=== PATIENT | female | born 1945 | race Caucasian/White ===

== ENCOUNTER 2018-08-06 07:18 | Inpatient (IN) | payer OTHER ==
[2018-08-06] MEDS: LACTATED RINGER'S 1,000 ML IV* (07:00)
[2018-08-06] MEDS: CEFAZOLIN 1 GM/50 ML (PMX) 50 ML IVPB ×3 (07:00→21:22)
[2018-08-06] MEDS: ACETAMINOPHEN 500 MG TAB PO (07:00)
[~2018-08-06 07:18] MED LIST: CEFAZOLIN 1 GM INJ; EPINEPHrine 0.1 MG/ML SYG; HIP PAIN COCKTAIL (CEFUROXIME) INJ; METOCLOPRAMIDE 10 MG INJ; ROPIVACAINE 0.5 % 30 ML VIAL; hydrALAzine 20 MG INJ
[2018-08-06] MEDS: ONDANSETRON 4 MG INJ IV ×3 (08:09→18:45)
[2018-08-06] MEDS: DEXAMETHASONE 4 MG/ML 1 ML INJ IV (08:10)
[2018-08-06] MEDS: LANSOPRAZOLE 30 MG CAP PO (08:10)
[2018-08-06] MEDS: oxyCODONE (CR) 10 MG TAB [oxyCONTIN] PO (08:10)
[2018-08-06] MEDS ORDERED: FENTAnyl 50 MCG/ML VIAL (08:15)
[2018-08-06] MEDS ORDERED: MIDAZOLAM 1 MG/ML 2 ML INJ (08:17)
[2018-08-06] MEDS ORDERED: ONDANSETRON 4 MG INJ (08:17)
[2018-08-06] MEDS ORDERED: PROPOFOL 20 ML (08:18)
[2018-08-06] MEDS ORDERED: LIDOCAINE 2% (SDV) 5 ML INJ (08:18)
[2018-08-06] MEDS ORDERED: CEFAZOLIN 1 GM INJ (08:19)
[2018-08-06] MEDS: SOD CHLORIDE 0.9% 1,000 ML IV ×2 (10:07→21:24)
[2018-08-06] MEDS ORDERED: BACITRACIN 50000 UNITS INJ (10:17)
[2018-08-06] MEDS ORDERED: BUPIVACAINE 0.75%/DEXT (SPINAL) 2 ML INJ (10:26)
[2018-08-06] MEDS ORDERED: morphine SULFATE/PF (10 MG/10 ML) INJ (10:29)
[2018-08-06] MEDS ORDERED: hydrALAzine 20 MG INJ IV (10:30)
[2018-08-06] MEDS ORDERED: HYDROmorphONE 1 MG/5 ML IV SYRINGE IV ×3 (10:30)
[2018-08-06] MEDS ORDERED: FENTAnyl 50 MCG/ML VIAL IV ×2 (10:30)
[2018-08-06] MEDS ORDERED: DIPHENHYDRAMINE 50 MG INJ IV ×2 (10:30)
[2018-08-06] MEDS ORDERED: IPRATROPIUM (NEB) 0.5 MG/2.5 ML AMP HHN (10:30)
[2018-08-06] MEDS ORDERED: NALOXONE (0.4 MG/ML) INJ IV (10:30)
[2018-08-06] MEDS ORDERED: NA PHOSPHATE/BIPHOS 133 ML ENEMA PR (10:30)
[2018-08-06] MEDS ORDERED: ONDANSETRON 4 MG INJ IV (10:30)
[2018-08-06] MEDS ORDERED: LABETALOL HCL 20MG INJ IV (10:30)
[2018-08-06] MEDS ORDERED: BISACODYL 10 MG SUPP PR (10:30)
[2018-08-06] MEDS ORDERED: MEPERIDINE 25 MG INJ IV (10:30)
[2018-08-06] MEDS ORDERED: oxyCODONE 5 MG TAB PO (10:30)
[2018-08-06] MEDS ORDERED: BETHANECHOL 25 MG TAB PO (10:30)
[2018-08-06] MEDS ORDERED: MAGNESIUM HYDROXIDE 30ML CUP PO (10:30)
[2018-08-06] MEDS ORDERED: SENNA/DOCUSATE NA (8.6MG/50MG) TAB PO (10:30)
[2018-08-06] MEDS: TRANEXAMIC ACID 1,000 MG in NS 100 ML PRE-OP X1 IVPB (10:43)
[2018-08-06] MEDS ORDERED: POLYMYXIN B 500000 UNIT INJ (10:56)
[2018-08-06] MEDS: HIP PAIN COCKTAIL (CEFUROXIME) INJ (11:28)
[2018-08-06] MEDS: BACITRACIN 50000 UNITS INJ IRR (12:00)
[2018-08-06] MEDS: POLYMYXIN B 500000 UNIT INJ IRR (12:00)
[2018-08-06] MEDS: TRANEXAMIC ACID 1,000 MG in NS 100 ML INTRA-OP X1 IVPB (12:40)
[2018-08-06] MEDS: LEVALBUTEROL (NEB) 1.25 MG/0.5 ML AMP HHN (13:02)
[2018-08-06] MEDS ORDERED: ALBUTEROL HFA 8 GM INHALER INH (16:00)
[2018-08-06] MEDS: ASPIRIN 81 MG TAB PO ×2 (16:40→21:23)
[2018-08-06] MEDS: GABAPENTIN 100 MG CAP PO ×2 (16:41→21:23)
[2018-08-06] MEDS: DOCUSATE SODIUM 100 MG CAP PO (16:41)
[2018-08-06] MEDS ORDERED: CEFAZOLIN 1 GM/50 ML (PMX) 50 ML IVPB (17:00)
[2018-08-06] MEDS: ATORVASTATIN 10 MG TAB PO (21:23)
[2018-08-07] MEDS: ONDANSETRON 4 MG INJ IV ×3 (01:11→12:59)
[2018-08-07] MEDS: CEFAZOLIN 1 GM/50 ML (PMX) 50 ML IVPB ×2 (02:45→10:22)
[2018-08-07 05:25] LABS: ADD MAN DIFF? NO
[2018-08-07 05:35] LABS: WHITE BLOOD COUNT 8.4 10^3/ul (4.8-10.8)
[2018-08-07 05:35] LABS: BASOPHILS % 0.2 % (0.0-2.0); EOSINOPHILS % 0.2 % (0.0-7.0); HEMATOCRIT 28.5 % (37.0-47.0); HEMOGLOBIN 8.7 g/dl (12.0-16.0); LYMPHOCYTES # 1.4 10^3/ul (0.8-2.9); LYMPHOCYTES % 16.7 % (15.0-51.0); MEAN CORPUSCULAR HEMOGLOBIN 28.6 pg (29.0-33.0); MEAN CORPUSCULAR HGB CONC 30.5 g/dl (32.0-37.0); MEAN CORPUSCULAR VOLUME 93.8 fl (82.0-101.0); MEAN PLATELET VOLUME 11.1 fl (7.4-10.4); MONOCYTE # 0.9 10^3/ul (0.3-0.9); MONOCYTES % 10.3 % (0.0-11.0); NEUTROPHIL # 6.1 10^3/ul (1.6-7.5); NEUTROPHILS % 72.2 % (39.0-77.0); PLATELET COUNT 220 10^3/UL (140-415); RED BLOOD COUNT 3.04 10^6/ul (4.20-5.40); RED CELL DISTRIBUTION WIDTH 14.2 % (11.5-14.5)
[2018-08-07] MEDS: oxyCODONE 5 MG TAB PO ×4 (05:40→19:57)
[2018-08-07 05:58] LABS: ANION GAP 12 (5-13); BLOOD UREA NITROGEN 37 mg/dl (7-20); CALCIUM 7.7 mg/dl (8.4-10.2); CARBON DIOXIDE 22 mmol/L (21-31); CHLORIDE 106 mmol/L (97-110); CREATININE 2.24 mg/dl (0.44-1.00); GLUCOSE 134 mg/dl (70-220); POTASSIUM 4.9 mmol/L (3.5-5.1); SODIUM 140 mmol/L (135-144)
[2018-08-07] MEDS: ASPIRIN 81 MG TAB PO ×2 (09:04→20:38)
[2018-08-07] MEDS: CELECOXIB 200 MG CAP PO ×2 (09:04→20:38)
[2018-08-07] MEDS: DOCUSATE SODIUM 100 MG CAP PO ×2 (09:04→20:36)
[2018-08-07] MEDS: LOSARTAN 50 MG TAB PO (09:05)
[2018-08-07] MEDS: FERROUS FUMARATE (SR) TAB PO ×2 (09:05→20:36)
[2018-08-07] MEDS: HYDROCHLOROTHIAZIDE 25 MG TAB PO (09:05)
[2018-08-07] MEDS: GABAPENTIN 100 MG CAP PO ×3 (09:07→20:37)
[2018-08-07] MEDS: SOD CHLORIDE 0.9% 1,000 ML IV ×2 (11:07→23:37)
[2018-08-07] MEDS: ATORVASTATIN 10 MG TAB PO (20:37)
[2018-08-08] MEDS: oxyCODONE 5 MG TAB PO ×4 (01:50→20:17)
[2018-08-08] MEDS: PANTOPRAZOLE (EC) 40 MG TAB PO (05:15)
[2018-08-08 05:23] LABS: ADD MAN DIFF? NO
[2018-08-08 05:28] LABS: WHITE BLOOD COUNT 8.1 10^3/ul (4.8-10.8)
[2018-08-08 05:28] LABS: BASOPHILS % 0.5 % (0.0-2.0); EOSINOPHILS # 0.2 10^3/ul (0.0-0.5); EOSINOPHILS % 1.8 % (0.0-7.0); HEMATOCRIT 29.5 % (37.0-47.0); HEMOGLOBIN 8.9 g/dl (12.0-16.0); LYMPHOCYTES # 1.4 10^3/ul (0.8-2.9); LYMPHOCYTES % 16.9 % (15.0-51.0); MEAN CORPUSCULAR HEMOGLOBIN 28.3 pg (29.0-33.0); MEAN CORPUSCULAR HGB CONC 30.2 g/dl (32.0-37.0); MEAN CORPUSCULAR VOLUME 93.7 fl (82.0-101.0); MEAN PLATELET VOLUME 11.5 fl (7.4-10.4); MONOCYTES % 12.1 % (0.0-11.0); NEUTROPHIL # 5.6 10^3/ul (1.6-7.5); NEUTROPHILS % 68.3 % (39.0-77.0); PLATELET COUNT 215 10^3/UL (140-415); RED BLOOD COUNT 3.15 10^6/ul (4.20-5.40); RED CELL DISTRIBUTION WIDTH 14.6 % (11.5-14.5)
[2018-08-08 06:22] LABS: ANION GAP 9 (5-13); BLOOD UREA NITROGEN 44 mg/dl (7-20); CALCIUM 7.8 mg/dl (8.4-10.2); CARBON DIOXIDE 24 mmol/L (21-31); CHLORIDE 101 mmol/L (97-110); CREATININE 2.63 mg/dl (0.44-1.00); GLUCOSE 116 mg/dl (70-220); POTASSIUM 5.2 mmol/L (3.5-5.1); SODIUM 134 mmol/L (135-144)
[2018-08-08] MEDS: DOCUSATE SODIUM 100 MG CAP PO ×2 (08:37→20:18)
[2018-08-08] MEDS: GABAPENTIN 100 MG CAP PO ×3 (08:37→20:18)
[2018-08-08] MEDS: HYDROCHLOROTHIAZIDE 25 MG TAB PO (08:37)
[2018-08-08] MEDS: FERROUS FUMARATE (SR) TAB PO ×2 (08:37→20:18)
[2018-08-08] MEDS: ASPIRIN 81 MG TAB PO (08:38)
[2018-08-08] MEDS: CELECOXIB 200 MG CAP PO (08:38)
[2018-08-08] MEDS: LOSARTAN 50 MG TAB PO (08:38)
[2018-08-08] MEDS: AMLODIPINE 5 MG TAB PO (11:20)
[2018-08-08] MEDS ORDERED: HEPARIN 5,000 UNIT/0.5 ML VIAL (20:13)
[2018-08-08] MEDS: ATORVASTATIN 10 MG TAB PO (20:18)
[2018-08-08] MEDS: HEPARIN 5,000 UNIT/1 ML VIAL SC (20:21)
[2018-08-08] MEDS: hydrALAzine 20 MG INJ IV (20:38)
== END 2018-08-08 21:12 | DRG 470 ==
LOC: REC 07:18 → MS1 13:54
PROC: 0SRD069 Replacement of Left Knee Joint with Oxidized Zirconium on Polyethylene Synthetic Substitute, Cemented, Open Approach (ICD-10-PCS; principal; 2018-08-06 10:30)
DX: M17.12 Unilateral primary osteoarthritis, left knee (principal); N18.4 Chronic kidney disease, stage 4 (severe); I50.9 Heart failure, unspecified; E78.5 Hyperlipidemia, unspecified; E03.9 Hypothyroidism, unspecified; J45.909 Unspecified asthma, uncomplicated; K21.9 Gastro-esophageal reflux disease without esophagitis; E66.01 Morbid (severe) obesity due to excess calories; Z68.36 Body mass index [BMI] 36.0-36.9, adult; F32.9 Major depressive disorder, single episode, unspecified; F41.9 Anxiety disorder, unspecified
CPT/HCPCS: 73560; 80048; 85025; 87081; 88304; 88311; 94664; 97110; 97116; 97162; 97167; 97530

== ENCOUNTER 2019-02-16 11:48 | Inpatient (IN) | payer OTHER, MEDICARE ==
[2019-02-16] MEDS: ASPIRIN 81 MG TAB PO (12:23)
[2019-02-16 12:26] LABS: ADD MAN DIFF? NO
[2019-02-16 12:30] LABS: WHITE BLOOD COUNT 6.2 10^3/ul (4.8-10.8)
[2019-02-16 12:30] LABS: BASOPHIL # 0.1 10^3/ul (0.0-0.1); EOSINOPHILS # 0.1 10^3/ul (0.0-0.5); EOSINOPHILS % 1.8 % (0.0-7.0); HEMATOCRIT 31.5 % (37.0-47.0); HEMOGLOBIN 9.7 g/dl (12.0-16.0); LYMPHOCYTES # 1.5 10^3/ul (0.8-2.9); LYMPHOCYTES % 24.7 % (15.0-51.0); MEAN CORPUSCULAR HEMOGLOBIN 29.4 pg (29.0-33.0); MEAN CORPUSCULAR HGB CONC 30.8 g/dl (32.0-37.0); MEAN CORPUSCULAR VOLUME 95.5 fl (82.0-101.0); MEAN PLATELET VOLUME 10.5 fl (7.4-10.4); MONOCYTE # 0.6 10^3/ul (0.3-0.9); MONOCYTES % 10.2 % (0.0-11.0); NEUTROPHIL # 3.8 10^3/ul (1.6-7.5); NEUTROPHILS % 61.8 % (39.0-77.0); PLATELET COUNT 233 10^3/UL (140-415); RED CELL DISTRIBUTION WIDTH 14.1 % (11.5-14.5)
[2019-02-16] MEDS: NITROGLYCERIN 50 MG/D5W (PMX) 250 ML IV ×2 (12:34→23:37)
[2019-02-16 12:45] LABS: INR 0.97
[2019-02-16 12:46] LABS: ALANINE AMINOTRANSFERASE 25 IU/L (13-69); ALKALINE PHOSPHATASE 118 IU/L (42-121); ANION GAP 8 (5-13); ASPARTATE AMINO TRANSFERASE 30 IU/L (15-46); BILIRUBIN,INDIRECT 0.3 mg/dl (0-1.1); BILIRUBIN,TOTAL 0.3 mg/dl (0.2-1.3); BLOOD UREA NITROGEN 39 mg/dl (7-20); CALCIUM 8.6 mg/dl (8.4-10.2); CARBON DIOXIDE 25 mmol/L (21-31); CHLORIDE 112 mmol/L (97-110); CREATININE 1.81 mg/dl (0.44-1.00); GLUCOSE 97 mg/dl (70-220); PARTIAL THROMBOPLASTIN TIME 32.8 Sec (23.0-35.0); POTASSIUM 4.8 mmol/L (3.5-5.1); SODIUM 145 mmol/L (135-144)
[2019-02-16 12:53] LABS: B-TYPE NATRIURETIC PEPTIDE 3230 PG/ML (0-125)
[2019-02-16 12:59] LABS: TROPONIN-I < 0.012 ng/ml (0.000-0.120)
[2019-02-16] MEDS: FUROSEMIDE 40 MG INJ IV ×2 (15:30→21:27)
[2019-02-16] MEDS ORDERED: NON-FORMULARY/PATIENT OWN MED ([Nephro-Vite] 1 TAB) PO (18:30)
[2019-02-16] MEDS ORDERED: MAGNESIUM HYDROXIDE 30ML CUP PO (20:30)
[2019-02-16] MEDS ORDERED: ONDANSETRON 4 MG INJ IV (20:30)
[2019-02-16] MEDS ORDERED: NITROGLYCERIN (SL) 0.4 MG TAB SL (20:30)
[2019-02-16] MEDS ORDERED: DOCUSATE SODIUM 100 MG CAP PO (20:30)
[2019-02-16] MEDS ORDERED: NACL 0.9% 3 ML SYG IV (20:30)
[2019-02-16] MEDS ORDERED: NON-FORMULARY/PATIENT OWN MED (Salmeterol Xinaf-Fluticasone* (Advair*) 1 INH) INHALATION (21:00)
[2019-02-16] MEDS ORDERED: ISOSORBIDE DINITRATE 40 MG PO (21:00)
[2019-02-16] MEDS: FAMOTIDINE 20 MG TAB PO (21:27)
[2019-02-16] MEDS: ATORVASTATIN 10 MG TAB PO (21:27)
[2019-02-17] MEDS: ZOLPIDEM 5 MG TAB PO ×2 (00:20→22:26)
[2019-02-17] MEDS: ALBUTEROL HFA 8 GM INHALER INH ×3 (00:28→14:56)
[2019-02-17 00:52] LABS: CREATINE KINASE 97 IU/L (23-200)
[2019-02-17 01:06] LABS: CK INDEX 1.8; CK-MB 1.78 ng/ml (0.0-2.4); TROPONIN-I < 0.012 ng/ml (0.000-0.120)
[2019-02-17 05:56] LABS: ADD MAN DIFF? NO
[2019-02-17 06:09] LABS: WHITE BLOOD COUNT 7.1 10^3/ul (4.8-10.8)
[2019-02-17 06:09] LABS: BASOPHIL # 0.1 10^3/ul (0.0-0.1); BASOPHILS % 0.7 % (0.0-2.0); EOSINOPHILS # 0.1 10^3/ul (0.0-0.5); HEMOGLOBIN 8.7 g/dl (12.0-16.0); LYMPHOCYTES # 1.2 10^3/ul (0.8-2.9); LYMPHOCYTES % 16.9 % (15.0-51.0); MEAN CORPUSCULAR HEMOGLOBIN 29.6 pg (29.0-33.0); MEAN CORPUSCULAR HGB CONC 31.1 g/dl (32.0-37.0); MEAN CORPUSCULAR VOLUME 95.2 fl (82.0-101.0); MEAN PLATELET VOLUME 10.9 fl (7.4-10.4); MONOCYTE # 0.9 10^3/ul (0.3-0.9); MONOCYTES % 13.2 % (0.0-11.0); NEUTROPHIL # 4.8 10^3/ul (1.6-7.5); NEUTROPHILS % 67.8 % (39.0-77.0); PLATELET COUNT 224 10^3/UL (140-415); RED BLOOD COUNT 2.94 10^6/ul (4.20-5.40); RED CELL DISTRIBUTION WIDTH 14.2 % (11.5-14.5)
[2019-02-17 06:34] LABS: CREATINE KINASE 91 IU/L (23-200)
[2019-02-17] MEDS: LEVOTHYROXINE 25 MCG TAB PO (06:40)
[2019-02-17] MEDS: PANTOPRAZOLE (EC) 40 MG TAB PO (06:40)
[2019-02-17 06:42] LABS: TROPONIN-I < 0.012 ng/ml (0.000-0.120)
[2019-02-17 06:43] LABS: ALANINE AMINOTRANSFERASE 19 IU/L (13-69); ALBUMIN 3.6 g/dl (3.3-4.9); ALBUMIN/GLOBULIN RATIO 1.16; ALKALINE PHOSPHATASE 83 IU/L (42-121); ANION GAP 8 (5-13); ASPARTATE AMINO TRANSFERASE 25 IU/L (15-46); BILIRUBIN,INDIRECT 0.4 mg/dl (0-1.1); BILIRUBIN,TOTAL 0.4 mg/dl (0.2-1.3); BLOOD UREA NITROGEN 40 mg/dl (7-20); CALCIUM 8.8 mg/dl (8.4-10.2); CARBON DIOXIDE 25 mmol/L (21-31); CHLORIDE 108 mmol/L (97-110); CHOL/HDL RATIO 2.4 RATIO; CHOLESTEROL 133 mg/dl (100-200); CREATININE 1.95 mg/dl (0.44-1.00); GLUCOSE 101 mg/dl (70-220); HDL CHOLESTEROL 54 mg/dl (33-92); LDL CHOLESTEROL,CALCULATED 66 mg/dl; POTASSIUM 4.3 mmol/L (3.5-5.1); SODIUM 141 mmol/L (135-144); TOTAL PROTEIN 6.7 g/dl (6.1-8.1); TRIGLYCERIDES 63 mg/dl (0-149)
[2019-02-17 06:45] LABS: CK INDEX 1.9; CK-MB 1.77 ng/ml (0.0-2.4)
[2019-02-17 07:29] LABS: HEMOGLOBIN A1C 5.5 % (0-5.9)
[2019-02-17] MEDS: FERROUS SULFATE (EC) 325 MG TAB PO (08:39)
[2019-02-17] MEDS: ASPIRIN 81 MG TAB PO (08:40)
[2019-02-17] MEDS: HYDROCODONE/APAP (5/325) TAB PO ×2 (08:40→16:54)
[2019-02-17] MEDS: CLOPIDOGREL 75 MG TAB PO (08:41)
[2019-02-17] MEDS: LOSARTAN 50 MG TAB PO (08:41)
[2019-02-17] MEDS: FLUTICASONE/VILANTEROL 100-25 INH (10:00)
[2019-02-17 12:51] LABS: CREATINE KINASE 104 IU/L (23-200)
[2019-02-17 13:03] LABS: CK INDEX 1.6; CK-MB 1.67 ng/ml (0.0-2.4); TROPONIN-I < 0.012 ng/ml (0.000-0.120)
[2019-02-17] MEDS: ISOSORBIDE DINITRATE 20 MG TAB PO ×3 (14:58→20:47)
[2019-02-17] MEDS: MULTIVIT/CA CARB/B CMPLX/FA TAB PO (14:58)
[2019-02-17] MEDS: FUROSEMIDE 40 MG TAB PO (14:58)
[2019-02-17] MEDS: morphine 2 MG INJ IV (14:59)
[2019-02-17] MEDS: EPOETIN ALFA-EPBX (NON-ESRD 10,000 UNIT/ML VIAL SC (16:55)
[2019-02-17] MEDS: FAMOTIDINE 20 MG TAB PO (20:43)
[2019-02-17] MEDS: ATORVASTATIN 10 MG TAB PO (20:43)
[2019-02-17] MEDS: NIFEdipine (XL) 60 MG TAB PO (20:46)
[2019-02-18] MEDS: PANTOPRAZOLE (EC) 40 MG TAB PO (06:40)
[2019-02-18] MEDS: LEVOTHYROXINE 25 MCG TAB PO (06:40)
[2019-02-18] MEDS: MULTIVIT/CA CARB/B CMPLX/FA TAB PO (08:16)
[2019-02-18] MEDS: ASPIRIN 81 MG TAB PO (08:16)
[2019-02-18] MEDS: CLOPIDOGREL 75 MG TAB PO (08:17)
[2019-02-18] MEDS: FERROUS SULFATE (EC) 325 MG TAB PO (08:17)
[2019-02-18] MEDS: FUROSEMIDE 40 MG TAB PO (08:19)
[2019-02-18] MEDS: ISOSORBIDE DINITRATE 20 MG TAB PO ×3 (08:19→20:12)
[2019-02-18] MEDS: NIFEdipine (XL) 60 MG TAB PO ×2 (08:20→20:11)
[2019-02-18] MEDS: LOSARTAN 50 MG TAB PO (08:20)
[2019-02-18] MEDS: FLUTICASONE/VILANTEROL 100-25 INH (08:21)
[2019-02-18] MEDS: ATORVASTATIN 10 MG TAB PO (20:11)
[2019-02-18] MEDS: FAMOTIDINE 20 MG TAB PO (20:12)
[2019-02-18] MEDS: ZOLPIDEM 5 MG TAB PO (22:13)
[2019-02-19] MEDS: PANTOPRAZOLE (EC) 40 MG TAB PO (05:36)
[2019-02-19] MEDS: LEVOTHYROXINE 25 MCG TAB PO (05:36)
[2019-02-19] MEDS: FUROSEMIDE 40 MG TAB PO (09:00)
[2019-02-19] MEDS: NIFEdipine (XL) 60 MG TAB PO ×2 (09:00→21:23)
[2019-02-19] MEDS: MULTIVIT/CA CARB/B CMPLX/FA TAB PO (09:00)
[2019-02-19] MEDS: LOSARTAN 50 MG TAB PO (09:00)
[2019-02-19] MEDS: ASPIRIN 81 MG TAB PO (09:00)
[2019-02-19] MEDS: CLOPIDOGREL 75 MG TAB PO (09:00)
[2019-02-19] MEDS: FERROUS SULFATE (EC) 325 MG TAB PO (09:00)
[2019-02-19] MEDS: ISOSORBIDE DINITRATE 20 MG TAB PO ×3 (09:00→21:22)
[2019-02-19] MEDS: FLUTICASONE/VILANTEROL 100-25 INH (09:11)
[2019-02-19] MEDS: REGADENOSON 0.4 MG/5 ML SYG (13:00)
[2019-02-19] MEDS: ATORVASTATIN 10 MG TAB PO (21:22)
[2019-02-19] MEDS: FAMOTIDINE 20 MG TAB PO (21:23)
[2019-02-20] MEDS: ZOLPIDEM 5 MG TAB PO ×2 (00:14→23:13)
[2019-02-20] MEDS: DEXTROSE 5%-0.45% NACL 1,000 ML IV (04:26)
[2019-02-20 06:07] LABS: ADD MAN DIFF? NO
[2019-02-20 06:12] LABS: BASOPHIL # 0.1 10^3/ul (0.0-0.1); BASOPHILS % 0.8 % (0.0-2.0); EOSINOPHILS # 0.1 10^3/ul (0.0-0.5); HEMATOCRIT 26.3 % (37.0-47.0); HEMOGLOBIN 8.1 g/dl (12.0-16.0); LYMPHOCYTES # 1.4 10^3/ul (0.8-2.9); LYMPHOCYTES % 22.8 % (15.0-51.0); MEAN CORPUSCULAR HEMOGLOBIN 29.3 pg (29.0-33.0); MEAN CORPUSCULAR HGB CONC 30.8 g/dl (32.0-37.0); MEAN CORPUSCULAR VOLUME 95.3 fl (82.0-101.0); MEAN PLATELET VOLUME 10.8 fl (7.4-10.4); MONOCYTE # 0.8 10^3/ul (0.3-0.9); MONOCYTES % 12.7 % (0.0-11.0); NEUTROPHIL # 3.7 10^3/ul (1.6-7.5); NEUTROPHILS % 61.4 % (39.0-77.0); PLATELET COUNT 236 10^3/UL (140-415); RED BLOOD COUNT 2.76 10^6/ul (4.20-5.40); RED CELL DISTRIBUTION WIDTH 13.9 % (11.5-14.5)
[2019-02-20 06:12] LABS: WHITE BLOOD COUNT 6.1 10^3/ul (4.8-10.8)
[2019-02-20] MEDS: LEVOTHYROXINE 25 MCG TAB PO (06:15)
[2019-02-20] MEDS: PANTOPRAZOLE (EC) 40 MG TAB PO (06:15)
[2019-02-20 06:47] LABS: ANION GAP 7 (5-13); BLOOD UREA NITROGEN 60 mg/dl (7-20); CALCIUM 7.7 mg/dl (8.4-10.2); CARBON DIOXIDE 24 mmol/L (21-31); CHLORIDE 110 mmol/L (97-110); CREATININE 2.34 mg/dl (0.44-1.00); GLUCOSE 105 mg/dl (70-220); POTASSIUM 4.5 mmol/L (3.5-5.1); SODIUM 141 mmol/L (135-144)
[2019-02-20] MEDS: FERROUS SULFATE (EC) 325 MG TAB PO (08:19)
[2019-02-20] MEDS: ASPIRIN 81 MG TAB PO (08:19)
[2019-02-20] MEDS: CLOPIDOGREL 75 MG TAB PO (08:19)
[2019-02-20] MEDS: MULTIVIT/CA CARB/B CMPLX/FA TAB PO (08:19)
[2019-02-20] MEDS: ISOSORBIDE DINITRATE 20 MG TAB PO ×3 (08:20→20:08)
[2019-02-20] MEDS: NIFEdipine (XL) 60 MG TAB PO ×2 (08:20→20:09)
[2019-02-20] MEDS: FUROSEMIDE 40 MG TAB PO (08:20)
[2019-02-20] MEDS: LOSARTAN 50 MG TAB PO (08:20)
[2019-02-20] MEDS: FLUTICASONE/VILANTEROL 100-25 INH (08:21)
[2019-02-20] MEDS: ATORVASTATIN 10 MG TAB PO (20:08)
[2019-02-20] MEDS: FAMOTIDINE 20 MG TAB PO (20:09)
[2019-02-21] MEDS: DEXTROSE 5%-0.45% NACL 1,000 ML IV (04:08)
[2019-02-21 05:56] LABS: ADD MAN DIFF? NO
[2019-02-21 05:59] LABS: BASOPHILS % 0.6 % (0.0-2.0); EOSINOPHILS # 0.1 10^3/ul (0.0-0.5); EOSINOPHILS % 2.4 % (0.0-7.0); HEMATOCRIT 27.1 % (37.0-47.0); HEMOGLOBIN 8.3 g/dl (12.0-16.0); LYMPHOCYTES # 1.5 10^3/ul (0.8-2.9); LYMPHOCYTES % 28.6 % (15.0-51.0); MEAN CORPUSCULAR HEMOGLOBIN 29.2 pg (29.0-33.0); MEAN CORPUSCULAR HGB CONC 30.6 g/dl (32.0-37.0); MEAN CORPUSCULAR VOLUME 95.4 fl (82.0-101.0); MEAN PLATELET VOLUME 10.4 fl (7.4-10.4); MONOCYTE # 0.7 10^3/ul (0.3-0.9); MONOCYTES % 13.5 % (0.0-11.0); NEUTROPHIL # 2.9 10^3/ul (1.6-7.5); NEUTROPHILS % 54.7 % (39.0-77.0); PLATELET COUNT 254 10^3/UL (140-415); RED BLOOD COUNT 2.84 10^6/ul (4.20-5.40); RED CELL DISTRIBUTION WIDTH 13.9 % (11.5-14.5)
[2019-02-21 05:59] LABS: WHITE BLOOD COUNT 5.4 10^3/ul (4.8-10.8)
[2019-02-21] MEDS: PANTOPRAZOLE (EC) 40 MG TAB PO (06:24)
[2019-02-21] MEDS: LEVOTHYROXINE 25 MCG TAB PO (06:24)
[2019-02-21 06:53] LABS: ANION GAP 6 (5-13); BLOOD UREA NITROGEN 58 mg/dl (7-20); CARBON DIOXIDE 24 mmol/L (21-31); CHLORIDE 110 mmol/L (97-110); CREATININE 2.23 mg/dl (0.44-1.00); GLUCOSE 104 mg/dl (70-220); POTASSIUM 4.7 mmol/L (3.5-5.1); SODIUM 140 mmol/L (135-144)
[2019-02-21] MEDS: FLUTICASONE/VILANTEROL 100-25 INH (08:59)
[2019-02-21] MEDS: FERROUS SULFATE (EC) 325 MG TAB PO (09:00)
[2019-02-21] MEDS: ISOSORBIDE DINITRATE 20 MG TAB PO ×3 (09:00→21:27)
[2019-02-21] MEDS: ASPIRIN 81 MG TAB PO (09:00)
[2019-02-21] MEDS: FUROSEMIDE 40 MG TAB PO (09:00)
[2019-02-21] MEDS: LOSARTAN 50 MG TAB PO (09:00)
[2019-02-21] MEDS: CLOPIDOGREL 75 MG TAB PO (09:00)
[2019-02-21] MEDS: NIFEdipine (XL) 60 MG TAB PO ×2 (09:01→21:27)
[2019-02-21] MEDS: MULTIVIT/CA CARB/B CMPLX/FA TAB PO (09:01)
[2019-02-21] MEDS: ATORVASTATIN 10 MG TAB PO (21:26)
[2019-02-21] MEDS: FAMOTIDINE 20 MG TAB PO (21:27)
[2019-02-21] MEDS: ZOLPIDEM 5 MG TAB PO (23:35)
[2019-02-22] MEDS: DEXTROSE 5%-0.45% NACL 1,000 ML IV ×2 (04:10→15:48)
[2019-02-22] MEDS: LEVOTHYROXINE 25 MCG TAB PO (06:23)
[2019-02-22] MEDS: PANTOPRAZOLE (EC) 40 MG TAB PO (06:23)
[2019-02-22] MEDS: ASPIRIN 81 MG TAB PO (08:57)
[2019-02-22] MEDS: FERROUS SULFATE (EC) 325 MG TAB PO (08:57)
[2019-02-22] MEDS: FLUTICASONE/VILANTEROL 100-25 INH (08:57)
[2019-02-22] MEDS: MULTIVIT/CA CARB/B CMPLX/FA TAB PO (08:58)
[2019-02-22] MEDS: ISOSORBIDE DINITRATE 20 MG TAB PO ×3 (08:58→20:27)
[2019-02-22] MEDS: NIFEdipine (XL) 60 MG TAB PO ×2 (08:58→20:27)
[2019-02-22] MEDS: CLOPIDOGREL 75 MG TAB PO (08:58)
[2019-02-22] MEDS: ATORVASTATIN 10 MG TAB PO (20:26)
[2019-02-22] MEDS: FAMOTIDINE 20 MG TAB PO (20:26)
[2019-02-23 05:59] LABS: ADD MAN DIFF? NO
[2019-02-23 06:10] LABS: WHITE BLOOD COUNT 5.5 10^3/ul (4.8-10.8)
[2019-02-23 06:10] LABS: BASOPHILS % 0.5 % (0.0-2.0); EOSINOPHILS # 0.1 10^3/ul (0.0-0.5); EOSINOPHILS % 1.8 % (0.0-7.0); HEMATOCRIT 27.7 % (37.0-47.0); HEMOGLOBIN 8.5 g/dl (12.0-16.0); LYMPHOCYTES # 1.7 10^3/ul (0.8-2.9); LYMPHOCYTES % 30.8 % (15.0-51.0); MEAN CORPUSCULAR HEMOGLOBIN 29.4 pg (29.0-33.0); MEAN CORPUSCULAR HGB CONC 30.7 g/dl (32.0-37.0); MEAN CORPUSCULAR VOLUME 95.8 fl (82.0-101.0); MEAN PLATELET VOLUME 10.5 fl (7.4-10.4); MONOCYTE # 0.7 10^3/ul (0.3-0.9); MONOCYTES % 12.5 % (0.0-11.0); PLATELET COUNT 261 10^3/UL (140-415); RED BLOOD COUNT 2.89 10^6/ul (4.20-5.40); RED CELL DISTRIBUTION WIDTH 13.7 % (11.5-14.5)
[2019-02-23] MEDS: PANTOPRAZOLE (EC) 40 MG TAB PO (06:34)
[2019-02-23] MEDS: LEVOTHYROXINE 25 MCG TAB PO (06:34)
[2019-02-23 06:50] LABS: ANION GAP 5 (5-13); BLOOD UREA NITROGEN 48 mg/dl (7-20); CARBON DIOXIDE 25 mmol/L (21-31); CHLORIDE 110 mmol/L (97-110); CREATININE 2.09 mg/dl (0.44-1.00); GLUCOSE 92 mg/dl (70-220); POTASSIUM 5.1 mmol/L (3.5-5.1); SODIUM 140 mmol/L (135-144)
[2019-02-23] MEDS: ASPIRIN 81 MG TAB PO (11:00)
[2019-02-23] MEDS: FLUTICASONE/VILANTEROL 100-25 INH (11:00)
[2019-02-23] MEDS: FERROUS SULFATE (EC) 325 MG TAB PO (11:01)
[2019-02-23] MEDS: ISOSORBIDE DINITRATE 20 MG TAB PO ×3 (11:02→21:27)
[2019-02-23] MEDS: MULTIVIT/CA CARB/B CMPLX/FA TAB PO (11:02)
[2019-02-23] MEDS: CLOPIDOGREL 75 MG TAB PO (11:02)
[2019-02-23] MEDS: NIFEdipine (XL) 60 MG TAB PO ×2 (11:02→21:26)
[2019-02-23] MEDS: ATORVASTATIN 10 MG TAB PO (21:24)
[2019-02-23] MEDS: FAMOTIDINE 20 MG TAB PO (21:26)
[2019-02-24 06:08] LABS: ADD MAN DIFF? NO
[2019-02-24 06:15] LABS: BASOPHILS % 0.6 % (0.0-2.0); EOSINOPHILS # 0.1 10^3/ul (0.0-0.5); EOSINOPHILS % 2.4 % (0.0-7.0); HEMOGLOBIN 8.3 g/dl (12.0-16.0); LYMPHOCYTES # 1.5 10^3/ul (0.8-2.9); LYMPHOCYTES % 29.7 % (15.0-51.0); MEAN CORPUSCULAR HEMOGLOBIN 29.4 pg (29.0-33.0); MEAN CORPUSCULAR HGB CONC 30.7 g/dl (32.0-37.0); MEAN CORPUSCULAR VOLUME 95.7 fl (82.0-101.0); MEAN PLATELET VOLUME 10.4 fl (7.4-10.4); MONOCYTE # 0.7 10^3/ul (0.3-0.9); MONOCYTES % 13.3 % (0.0-11.0); NEUTROPHIL # 2.7 10^3/ul (1.6-7.5); NEUTROPHILS % 53.8 % (39.0-77.0); PLATELET COUNT 271 10^3/UL (140-415); RED BLOOD COUNT 2.82 10^6/ul (4.20-5.40); RED CELL DISTRIBUTION WIDTH 13.6 % (11.5-14.5)
[2019-02-24 06:45] LABS: ANION GAP 4 (5-13); BLOOD UREA NITROGEN 47 mg/dl (7-20); CALCIUM 8.6 mg/dl (8.4-10.2); CARBON DIOXIDE 26 mmol/L (21-31); CHLORIDE 109 mmol/L (97-110); CREATININE 1.89 mg/dl (0.44-1.00); GLUCOSE 91 mg/dl (70-220); POTASSIUM 4.8 mmol/L (3.5-5.1); SODIUM 139 mmol/L (135-144)
[2019-02-24] MEDS: MULTIVIT/CA CARB/B CMPLX/FA TAB PO (08:05)
[2019-02-24] MEDS: FERROUS SULFATE (EC) 325 MG TAB PO (08:05)
[2019-02-24] MEDS: PANTOPRAZOLE (EC) 40 MG TAB PO (08:05)
[2019-02-24] MEDS: CLOPIDOGREL 75 MG TAB PO (08:05)
[2019-02-24] MEDS: LEVOTHYROXINE 25 MCG TAB PO (08:05)
[2019-02-24] MEDS: ASPIRIN 81 MG TAB PO (08:05)
[2019-02-24] MEDS: FLUTICASONE/VILANTEROL 100-25 INH (08:06)
[2019-02-24] MEDS: NIFEdipine (XL) 60 MG TAB PO ×2 (08:06→21:00)
[2019-02-24] MEDS: ISOSORBIDE DINITRATE 20 MG TAB PO ×3 (08:07→21:01)
[2019-02-24 13:07] LABS: AADO2 Arterial 30.3 mmHg (7.0-24.0); Allen Test ACCEPTAB; Arterial Base Excess -2.9 mmol/L (-3.0-3); Arterial Blood Gas Oxygen Sat 97.3 mmHG (95.0-100.0); Arterial COHb 0.3 % (0.0-3.0); Arterial Fraction of Oxyhgb 96.4 % (93.0-99.0); Arterial HCO3 23.3 mmol/L (22.0-26.0); Arterial MetHb 0.6 % (0.0-1.5); Arterial pCO2 46.2 mmhg (35-45); MODE NASAL CANNULA; Site Right Radial
[2019-02-24] MEDS: AZITHROMYCIN 250 MG TAB PO (13:17)
[2019-02-24] MEDS: METHYLPREDNISOLONE 40 MG INJ IV ×2 (13:18→18:00)
[2019-02-24] MEDS: ALBUTEROL/IPRATROPIUM (NEB) 3 ML AMP HHN ×2 (14:41→19:58)
[2019-02-24] MEDS: FAMOTIDINE 20 MG TAB PO (20:56)
[2019-02-24] MEDS: ATORVASTATIN 10 MG TAB PO (20:56)
[2019-02-25] MEDS: ALBUTEROL/IPRATROPIUM (NEB) 3 ML AMP HHN ×4 (01:39→20:17)
[2019-02-25] MEDS: PANTOPRAZOLE (EC) 40 MG TAB PO (06:14)
[2019-02-25] MEDS: LEVOTHYROXINE 25 MCG TAB PO (06:14)
[2019-02-25] MEDS: METHYLPREDNISOLONE 40 MG INJ IV ×4 (06:14→18:51)
[2019-02-25] MEDS: ISOSORBIDE DINITRATE 20 MG TAB PO ×3 (08:21→21:31)
[2019-02-25] MEDS: NIFEdipine (XL) 60 MG TAB PO ×2 (08:22→21:31)
[2019-02-25] MEDS: MULTIVIT/CA CARB/B CMPLX/FA TAB PO (08:27)
[2019-02-25] MEDS: ASPIRIN 81 MG TAB PO (08:28)
[2019-02-25] MEDS: AZITHROMYCIN 250 MG TAB PO (08:28)
[2019-02-25] MEDS: FERROUS SULFATE (EC) 325 MG TAB PO (08:28)
[2019-02-25] MEDS: CLOPIDOGREL 75 MG TAB PO (08:28)
[2019-02-25] MEDS: FLUTICASONE/VILANTEROL 100-25 INH (09:00)
[2019-02-25] MEDS: FAMOTIDINE 20 MG TAB PO (21:31)
[2019-02-25] MEDS: ATORVASTATIN 10 MG TAB PO (21:31)
[2019-02-26] MEDS: METHYLPREDNISOLONE 40 MG INJ IV ×2 (00:52→06:25)
[2019-02-26 01:16] LABS: ADD MAN DIFF? NO
[2019-02-26 01:21] LABS: BASOPHILS % 0.1 % (0.0-2.0); HEMATOCRIT 26.6 % (37.0-47.0); HEMOGLOBIN 8.2 g/dl (12.0-16.0); LYMPHOCYTES # 0.7 10^3/ul (0.8-2.9); LYMPHOCYTES % 7.1 % (15.0-51.0); MEAN CORPUSCULAR HEMOGLOBIN 29.1 pg (29.0-33.0); MEAN CORPUSCULAR HGB CONC 30.8 g/dl (32.0-37.0); MEAN CORPUSCULAR VOLUME 94.3 fl (82.0-101.0); MEAN PLATELET VOLUME 10.5 fl (7.4-10.4); MONOCYTE # 0.2 10^3/ul (0.3-0.9); MONOCYTES % 2.3 % (0.0-11.0); NEUTROPHIL # 8.3 10^3/ul (1.6-7.5); NEUTROPHILS % 89.8 % (39.0-77.0); PLATELET COUNT 297 10^3/UL (140-415); RED BLOOD COUNT 2.82 10^6/ul (4.20-5.40); RED CELL DISTRIBUTION WIDTH 13.4 % (11.5-14.5)
[2019-02-26 01:21] LABS: WHITE BLOOD COUNT 9.2 10^3/ul (4.8-10.8)
[2019-02-26] MEDS: ALBUTEROL/IPRATROPIUM (NEB) 3 ML AMP HHN ×4 (01:38→20:00)
[2019-02-26 01:41] LABS: ANION GAP 10 (5-13); BLOOD UREA NITROGEN 48 mg/dl (7-20); CALCIUM 8.7 mg/dl (8.4-10.2); CARBON DIOXIDE 23 mmol/L (21-31); CHLORIDE 106 mmol/L (97-110); CREATININE 1.78 mg/dl (0.44-1.00); GLUCOSE 163 mg/dl (70-220); POTASSIUM 5.7 mmol/L (3.5-5.1); SODIUM 139 mmol/L (135-144)
[2019-02-26] MEDS: PANTOPRAZOLE (EC) 40 MG TAB PO (06:25)
[2019-02-26] MEDS: LEVOTHYROXINE 25 MCG TAB PO (06:25)
[2019-02-26 07:08] LABS: ANION GAP 9 (5-13); BLOOD UREA NITROGEN 49 mg/dl (7-20); CALCIUM 8.8 mg/dl (8.4-10.2); CARBON DIOXIDE 22 mmol/L (21-31); CHLORIDE 108 mmol/L (97-110); CREATININE 1.73 mg/dl (0.44-1.00); GLUCOSE 146 mg/dl (70-220); POTASSIUM 5.4 mmol/L (3.5-5.1); SODIUM 139 mmol/L (135-144)
[2019-02-26] MEDS: ASPIRIN 81 MG TAB PO (08:31)
[2019-02-26] MEDS: ISOSORBIDE DINITRATE 20 MG TAB PO ×3 (08:31→21:01)
[2019-02-26] MEDS: MULTIVIT/CA CARB/B CMPLX/FA TAB PO (08:31)
[2019-02-26] MEDS: FERROUS SULFATE (EC) 325 MG TAB PO (08:32)
[2019-02-26] MEDS: CLOPIDOGREL 75 MG TAB PO (08:32)
[2019-02-26] MEDS: AZITHROMYCIN 250 MG TAB PO (08:32)
[2019-02-26] MEDS: NIFEdipine (XL) 60 MG TAB PO ×2 (08:34→21:02)
[2019-02-26] MEDS: FLUTICASONE/VILANTEROL 100-25 INH (10:45)
[2019-02-26] MEDS: SODIUM POLYSTYRENE 15 GM KIT (POWDER + SORBITOL) PO (10:46)
[2019-02-26] MEDS: ATORVASTATIN 10 MG TAB PO (21:00)
[2019-02-26] MEDS: FAMOTIDINE 20 MG TAB PO (21:00)
[2019-02-26] MEDS: ACETAMINOPHEN 325 MG TAB PO (21:02)
[2019-02-26] MEDS: ZOLPIDEM 5 MG TAB PO (21:02)
[2019-02-27] MEDS: ALBUTEROL/IPRATROPIUM (NEB) 3 ML AMP HHN ×4 (01:47→19:32)
[2019-02-27 05:42] LABS: ADD MAN DIFF? NO
[2019-02-27 05:51] LABS: BASOPHILS % 0.3 % (0.0-2.0); EOSINOPHILS % 0.1 % (0.0-7.0); HEMATOCRIT 26.7 % (37.0-47.0); HEMOGLOBIN 8.1 g/dl (12.0-16.0); LYMPHOCYTES # 1.8 10^3/ul (0.8-2.9); LYMPHOCYTES % 22.9 % (15.0-51.0); MEAN CORPUSCULAR HEMOGLOBIN 28.7 pg (29.0-33.0); MEAN CORPUSCULAR HGB CONC 30.3 g/dl (32.0-37.0); MEAN CORPUSCULAR VOLUME 94.7 fl (82.0-101.0); MEAN PLATELET VOLUME 10.5 fl (7.4-10.4); MONOCYTE # 0.9 10^3/ul (0.3-0.9); MONOCYTES % 10.7 % (0.0-11.0); NEUTROPHIL # 5.2 10^3/ul (1.6-7.5); NEUTROPHILS % 65.6 % (39.0-77.0); PLATELET COUNT 271 10^3/UL (140-415); RED BLOOD COUNT 2.82 10^6/ul (4.20-5.40); RED CELL DISTRIBUTION WIDTH 13.4 % (11.5-14.5)
[2019-02-27] MEDS: PANTOPRAZOLE (EC) 40 MG TAB PO (05:57)
[2019-02-27] MEDS: LEVOTHYROXINE 25 MCG TAB PO (05:57)
[2019-02-27 06:22] LABS: ANION GAP 6 (5-13); BLOOD UREA NITROGEN 50 mg/dl (7-20); CALCIUM 7.9 mg/dl (8.4-10.2); CARBON DIOXIDE 23 mmol/L (21-31); CHLORIDE 109 mmol/L (97-110); CREATININE 1.79 mg/dl (0.44-1.00); GLUCOSE 95 mg/dl (70-220); POTASSIUM 4.6 mmol/L (3.5-5.1); SODIUM 138 mmol/L (135-144)
[2019-02-27] MEDS: FLUTICASONE/VILANTEROL 100-25 INH (08:27)
[2019-02-27] MEDS: MULTIVIT/CA CARB/B CMPLX/FA TAB PO (08:28)
[2019-02-27] MEDS: FERROUS SULFATE (EC) 325 MG TAB PO (08:28)
[2019-02-27] MEDS: CLOPIDOGREL 75 MG TAB PO (08:28)
[2019-02-27] MEDS: AZITHROMYCIN 250 MG TAB PO (08:29)
[2019-02-27] MEDS: ISOSORBIDE DINITRATE 20 MG TAB PO ×3 (08:29→20:19)
[2019-02-27] MEDS: NIFEdipine (XL) 60 MG TAB PO ×2 (08:29→20:20)
[2019-02-27] MEDS: ASPIRIN 81 MG TAB PO (08:30)
[2019-02-27] MEDS: FAMOTIDINE 20 MG TAB PO (20:20)
[2019-02-27] MEDS: ATORVASTATIN 10 MG TAB PO (20:20)
[2019-02-27] MEDS: EPOETIN ALFA-EPBX (NON-ESRD 10,000 UNIT/ML VIAL SC (20:56)
[2019-02-28] MEDS: ALBUTEROL/IPRATROPIUM (NEB) 3 ML AMP HHN ×4 (02:07→19:05)
[2019-02-28] MEDS: LEVOTHYROXINE 25 MCG TAB PO (06:00)
[2019-02-28] MEDS: PANTOPRAZOLE (EC) 40 MG TAB PO (06:00)
[2019-02-28] MEDS: FERROUS SULFATE (EC) 325 MG TAB PO (09:06)
[2019-02-28] MEDS: AZITHROMYCIN 250 MG TAB PO (09:06)
[2019-02-28] MEDS: ISOSORBIDE DINITRATE 20 MG TAB PO ×3 (09:07→20:14)
[2019-02-28] MEDS: MULTIVIT/CA CARB/B CMPLX/FA TAB PO (09:07)
[2019-02-28] MEDS: FUROSEMIDE 20 MG TAB PO (09:07)
[2019-02-28] MEDS: NIFEdipine (XL) 60 MG TAB PO ×2 (09:07→20:16)
[2019-02-28] MEDS: CLOPIDOGREL 75 MG TAB PO (09:07)
[2019-02-28] MEDS: ASPIRIN 81 MG TAB PO (09:07)
[2019-02-28] MEDS: FLUTICASONE/VILANTEROL 100-25 INH (09:08)
[2019-02-28 10:48] LABS: ADD MAN DIFF? NO
[2019-02-28 10:50] LABS: BASOPHILS % 0.8 % (0.0-2.0); EOSINOPHILS # 0.1 10^3/ul (0.0-0.5); EOSINOPHILS % 2.3 % (0.0-7.0); HEMATOCRIT 29.8 % (37.0-47.0); HEMOGLOBIN 9.1 g/dl (12.0-16.0); LYMPHOCYTES # 1.6 10^3/ul (0.8-2.9); LYMPHOCYTES % 30.2 % (15.0-51.0); MEAN CORPUSCULAR HEMOGLOBIN 29.1 pg (29.0-33.0); MEAN CORPUSCULAR HGB CONC 30.5 g/dl (32.0-37.0); MEAN CORPUSCULAR VOLUME 95.2 fl (82.0-101.0); MEAN PLATELET VOLUME 10.6 fl (7.4-10.4); MONOCYTE # 0.8 10^3/ul (0.3-0.9); MONOCYTES % 15.7 % (0.0-11.0); NEUTROPHIL # 2.7 10^3/ul (1.6-7.5); NEUTROPHILS % 50.6 % (39.0-77.0); PLATELET COUNT 305 10^3/UL (140-415); RED BLOOD COUNT 3.13 10^6/ul (4.20-5.40); RED CELL DISTRIBUTION WIDTH 13.4 % (11.5-14.5)
[2019-02-28 10:50] LABS: WHITE BLOOD COUNT 5.3 10^3/ul (4.8-10.8)
[2019-02-28 11:09] LABS: ANION GAP 8 (5-13); BLOOD UREA NITROGEN 48 mg/dl (7-20); CARBON DIOXIDE 23 mmol/L (21-31); CHLORIDE 108 mmol/L (97-110); CREATININE 1.73 mg/dl (0.44-1.00); GLUCOSE 139 mg/dl (70-220); POTASSIUM 4.4 mmol/L (3.5-5.1); SODIUM 139 mmol/L (135-144)
[2019-02-28] MEDS: ATORVASTATIN 10 MG TAB PO (20:14)
[2019-02-28] MEDS: FAMOTIDINE 20 MG TAB PO (20:14)
[2019-03-01] MEDS: ALBUTEROL/IPRATROPIUM (NEB) 3 ML AMP HHN ×3 (01:12→14:10)
[2019-03-01] MEDS: LEVOTHYROXINE 25 MCG TAB PO (06:04)
[2019-03-01] MEDS: PANTOPRAZOLE (EC) 40 MG TAB PO (06:05)
[2019-03-01 07:50] LABS: ADD MAN DIFF? NO
[2019-03-01 07:53] LABS: BASOPHILS % 0.6 % (0.0-2.0); EOSINOPHILS # 0.2 10^3/ul (0.0-0.5); EOSINOPHILS % 3.6 % (0.0-7.0); HEMATOCRIT 28.7 % (37.0-47.0); HEMOGLOBIN 8.9 g/dl (12.0-16.0); LYMPHOCYTES # 2.2 10^3/ul (0.8-2.9); MEAN CORPUSCULAR HEMOGLOBIN 29.1 pg (29.0-33.0); MEAN CORPUSCULAR VOLUME 93.8 fl (82.0-101.0); MEAN PLATELET VOLUME 10.5 fl (7.4-10.4); MONOCYTE # 0.8 10^3/ul (0.3-0.9); MONOCYTES % 11.9 % (0.0-11.0); NEUTROPHIL # 3.4 10^3/ul (1.6-7.5); NEUTROPHILS % 50.6 % (39.0-77.0); PLATELET COUNT 273 10^3/UL (140-415); RED BLOOD COUNT 3.06 10^6/ul (4.20-5.40); RED CELL DISTRIBUTION WIDTH 13.2 % (11.5-14.5)
[2019-03-01 07:53] LABS: WHITE BLOOD COUNT 6.8 10^3/ul (4.8-10.8)
[2019-03-01 08:20] LABS: ANION GAP 11 (5-13); BLOOD UREA NITROGEN 45 mg/dl (7-20); CALCIUM 8.1 mg/dl (8.4-10.2); CARBON DIOXIDE 24 mmol/L (21-31); CHLORIDE 106 mmol/L (97-110); GLUCOSE 90 mg/dl (70-220); POTASSIUM 4.4 mmol/L (3.5-5.1); SODIUM 141 mmol/L (135-144)
[2019-03-01] MEDS: FERROUS SULFATE (EC) 325 MG TAB PO (10:18)
[2019-03-01] MEDS: ASPIRIN 81 MG TAB PO (10:18)
[2019-03-01] MEDS: FLUTICASONE/VILANTEROL 100-25 INH (10:21)
[2019-03-01] MEDS: MULTIVIT/CA CARB/B CMPLX/FA TAB PO (10:22)
[2019-03-01] MEDS: ISOSORBIDE DINITRATE 20 MG TAB PO ×2 (10:22→12:24)
[2019-03-01] MEDS: FUROSEMIDE 20 MG TAB PO (10:22)
[2019-03-01] MEDS: CLOPIDOGREL 75 MG TAB PO (10:23)
[2019-03-01] MEDS: NIFEdipine (XL) 60 MG TAB PO (10:23)
== END 2019-03-01 19:42 | DRG 291 ==
LOC: E/R 11:48 → TEL 02-17 17:19 → ICU 14:27 → 6WM 02-17 17:20
DX: I13.0 Hypertensive heart and chronic kidney disease with heart failure and stage 1 through stage 4 chronic kidney disease, or unspecified chronic kidney disease (principal); I50.33 Acute on chronic diastolic (congestive) heart failure; I16.1 Hypertensive emergency; J45.901 Unspecified asthma with (acute) exacerbation; N17.9 Acute kidney failure, unspecified; J20.9 Acute bronchitis, unspecified; I73.9 Peripheral vascular disease, unspecified; D63.1 Anemia in chronic kidney disease; N18.3 Chronic kidney disease, stage 3 (moderate); E78.5 Hyperlipidemia, unspecified; E03.9 Hypothyroidism, unspecified; D50.9 Iron deficiency anemia, unspecified; Z96.652 Presence of left artificial knee joint; E66.9 Obesity, unspecified; Z68.38 Body mass index [BMI] 38.0-38.9, adult; Z79.82 Long term (current) use of aspirin; Z79.02 Long term (current) use of antithrombotics/antiplatelets
CPT/HCPCS: 36415; 36600; 71045; 78452; 80048; 80053; 80061; 82550; 82553; 82803; 83036; 83880; 84443; 84484; 85025; 85610; 85730; 93005; 93017; 94640; 94664; 96374; 97116; 97162; 97530; 99285-25